=== PATIENT | female | born 1980 | race Caucasian/White ===

== ENCOUNTER 2018-12-09 16:34 | Emergency (ER) | payer SELFPAY ==
[~2018-12-09] VITALS: Ht 154.9 cm; Wt 77.5 kg
[2018-12-09 16:39] VITALS: BP 132/66; PULSE 84; RESP 18; Ht 154.9 cm; Wt 77.5 kg
== END 2018-12-09 20:00 | disposition left against medical advice (07) ==
LOC: FTE 16:34
DX: Z53.21 Procedure and treatment not carried out due to patient leaving prior to being seen by health care provider (principal)